=== PATIENT | male | born 1985 | race Caucasian/White ===

== ENCOUNTER 2020-01-28 05:07 | Emergency (ER) | payer BC ==
--- NOTE | 2020-01-28 05:45 | EDM.PDOC ---
ED HPI GENERAL MEDICAL PROBLEM - General Chief Complaint: Chest Pain Stated Complaint: CHEST PAIN Time Seen by Provider: 01/28/20 05:38 Source of Information: Reports: Patient History Limitations: Reports: No Limitations - History of Present Illness INITIAL COMMENTS - FREE TEXT/NARRATIVE: 34-year-old male who reports on Thursday night developed pain in his throat that was a pressure or constricting type pain that was present when he was swallowing. The symptoms seemed to continue through the day on and were really only present when he swallowed and then on evening and part of the day he began to have some pain in his chest that was present with swallowing and seem to come in waves lasting for 5-10 seconds and was a pressure type pain. At its worst during that night the pain got up to an 8/10. It did seem to get better when he got up and moved around and was better through the day on Thursday but last night the pain seemed to come back and be worse again with frequent episodes of this waves of chest discomfort and pain in his throat with swallowing. Currently he has no chest pain but he does have a 2/10 level of discomfort in his throat that he reports is a constriction type is comfort and is exacerbated when he swallows. No nausea or vomiting. No difficulty breathing. No arm pain. No back pain. No cough. No nasal congestion. No fevers or chills. There are no other associated signs or symptoms. There are no other modifying factors. 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) (Tums, with no relief) throat and upper mid chest Pain Score (Numeric/FACES): 2 - Related Data Allergies Allergy/AdvReac Type Severity Reaction Status Date / Time No Known Allergies Allergy Verified 01/28/20 05:24 Home Meds: Home Meds Levothyroxine 200 mcg PO ACBREAKFAST 01/28/20 [History] Omeprazole 40 mg PO ACBREAKFAST #30 cap.sr 01/28/20 [Rx] Past Medical History Endocrine/Metabolic History: Reports: Hypothyroidism (Had Graves' disease initially that was treated with radioactive iodine) - Past Surgical History Other Musculoskeletal Surgeries/Procedures:: Toenail surgeries Social & Family History - Family History Cardiac: Reports: CAD (Father with cardiac stents placed in late 30s and early 40s.) - Tobacco Use Smoking Status *Q: Former Smoker Used Tobacco, but Quit: Yes Month/Year Tobacco Last Used: 2013 - Alcohol Use Alcohol Use History: Yes Alcohol Use in Last Twelve Months: Yes Alcohol Use Frequency: Rarely - Recreational Drug Use Recreational Drug Use: No - Living Situation & Occupation Living situation: Reports: Occupation: Employed (He works as a heavy equipment diesel mechanic.) ED ROS GENERAL - Review of Systems Review Of Systems: See Below Constitutional: Reports: No Symptoms HEENT: Reports: Throat Pain Respiratory: Reports: No Symptoms Cardiovascular: Reports: Chest Pain Endocrine: Reports: No Symptoms GI/Abdominal: Reports: No Symptoms : Reports: No Symptoms Musculoskeletal: Reports: No Symptoms Skin: Reports: No Symptoms Neurological: Reports: No Symptoms Psychiatric: Reports: No Symptoms Hematologic/Lymphatic: Reports: No Symptoms Immunologic: Reports: No Symptoms ED EXAM, GENERAL - Physical Exam Exam: See Below Exam Limited By: No Limitations General Appearance: Alert, WD/WN, No Apparent Distress Eye Exam: Bilateral Eye: EOMI, Normal Inspection, PERRL Ears: Normal External Exam, Hearing Grossly Normal Ear Exam: Bilateral Ear: Auricle Normal Nose: Normal Inspection, Normal Mucosa, No Blood Throat/Mouth: Normal Inspection, Normal Oropharynx, Normal Voice, No Airway Compromise Head: Atraumatic, Normocephalic Neck: Normal Inspection, Supple, Non-Tender, Full Range of Motion Respiratory/Chest: No Respiratory Distress, Lungs Clear, Normal Breath Sounds, No Accessory Muscle Use, Chest Non-Tender Cardiovascular: Normal Peripheral Pulses, Regular Rate, Rhythm, No JVD, No Murmur Peripheral Pulses: 2+: Radial (L), Radial (R) GI/Abdominal: Normal Bowel Sounds, Soft, Non-Tender, No Organomegaly, No Mass Back Exam: Normal Inspection, Full Range of Motion Extremities: Normal Inspection, Normal Range of Motion, Non-Tender, No Pedal Edema, Normal Capillary Refill Neurological: Alert, Oriented, CN II-XII Intact, Normal Cognition, No Motor/ Sensory Deficits Psychiatric: Normal Affect, Normal Mood Skin Exam: Warm, Dry, Intact, Normal Color Lymphatic: No Adenopathy EKG INTERPRETATION EKG Date: 01/28/20 Time: 05:16 Rhythm: NSR Rate (Beats/Min): 70 [place]: Normal P-Wave: Present QRS: Normal ST-T: Normal QT: Normal Comparison: NA - No Prior EKG EKG Interpretation Comments: 6:17 AM: Repeat EKG showed normal sinus rhythm with a rate of 56. There was a normal axis and normal intervals and no change from previous EKG performed earlier today. 7:34 AM: Repeat EKG shows a normal sinus rhythm with a rate of 74. There is no change in this EKG from the previous EKGs performed today. This EKG was performed secondary to the patient having recurrent burning sensation in his throat. Course - Vital Signs Last Recorded V/S: Last Vital Signs Temp 36.1 C 01/28/20 05:07 Pulse 69 01/28/20 07:00 Resp 14 01/28/20 05:45 BP 131/94 H 01/28/20 07:00 Pulse Ox 98 01/28/20 05:45 - Orders/Labs/Meds Orders: Active Orders 24 hr Category Date Time Status EKG Documentation Completion [RC] ASDIRECTED Care 01/28/20 06:02 Active EKG Documentation Completion [RC] ASDIRECTED Care 01/28/20 06:41 Active EKG Documentation Completion [RC] ASDIRECTED Care 01/28/20 07:30 Active Ang Chest [CT] Stat Exams 01/28/20 08:11 Taken Chest 1V Frontal [CR] Stat Exams 01/28/20 06:01 Taken Nitroglycerin [Nitrostat] Med 01/28/20 06:03 Active 0.4 mg SL Q5M PRN Sodium Chloride 0.9% [Saline Flush] Med 01/28/20 06:01 Active 10 ml FLUSH ASDIRECTED PRN Peripheral IV Insertion Adult [OM.PC] Routine Oth 01/28/20 06:01 Ordered EKG 12 Lead [EK] Routine Ther 01/28/20 06:01 Ordered EKG 12 Lead [EK] Routine Ther 01/28/20 07:29 Ordered EKG 12 Lead [EK] Stat Ther 01/28/20 06:41 Ordered Medication Orders Nitroglycerin (Nitrostat) 0.4 mg SL Q5M PRN PRN Reason: Chest Pain Last Admin: 01/28/20 06:06 Dose: 0.4 mg Sodium Chloride (Saline Flush) 10 ml FLUSH ASDIRECTED PRN PRN Reason: Keep Vein Open Last Admin: 01/28/20 06:49 Dose: 10 ml Labs: Laboratory Tests 01/28/20 01/28/20 01/28/20 Range/Units 06:15 06:15 06:15 WBC 8.4 (4.5-12.0) X10-3/uL RBC 5.35 (4.30-5.75) x10(6)uL Hgb 16.2 (13.5-17.8) g/dL Hct 46.9 (30.0-51.3) % MCV 87.7 (80-96) fL MCH 30.3 (27.7-33.6) pg MCHC 34.6 (32.2-35.4) g/dL RDW 11.2 L (11.5-15.5) % Plt Count 97 L (125-369) X10(3)uL MPV 9.8 (7.4-10.4) fL Add Manual Diff Yes Neutrophils % (Manual) 51 (46-82) % Lymphocytes % (Manual) 43 H (13-37) % Monocytes % (Manual) 4 (4-12) % Eosinophils % (Manual) 2 (0-5) % Clumped Platelets Few D-Dimer, Quantitative 1.97 H (0.0-0.59) mg/LFEU Sodium 142 (135-145) mmol/L Potassium 3.8 (3.5-5.3) mmol/L Chloride 104 (100-110) mmol/L Carbon Dioxide 28 (21-32) mmol/L BUN 10 (7-18) mg/dL Creatinine 1.0 (0.70-1.30) mg/dL Est Cr Clr Drug Dosing 109.81 mL/min Estimated GFR (MDRD) > 60 (>60) BUN/Creatinine Ratio 10.0 (9-20) Glucose 104 (80-116) mg/dL Calcium 8.3 L (8.6-10.2) mg/dL Magnesium 1.8 (1.8-2.5) mg/dL Total Bilirubin 0.4 (0.1-1.3) mg/dL AST 27 H (5-25) IU/L ALT 69 H (12-36) U/L Alkaline Phosphatase 59 (56-112) IU/L Troponin I (4.0-60.3) pg/mL Total Protein 7.4 (6.0-8.0) g/dL Albumin 3.8 (3.5-5.2) g/dL Globulin 3.6 g/dL Albumin/Globulin Ratio 1.1 01/28/20 01/28/20 Range/Units 06:15 09:15 WBC (4.5-12.0) X10-3/uL RBC (4.30-5.75) x10(6)uL Hgb (13.5-17.8) g/dL Hct (30.0-51.3) % MCV (80-96) fL MCH (27.7-33.6) pg MCHC (32.2-35.4) g/dL RDW (11.5-15.5) % Plt Count (125-369) X10(3)uL MPV (7.4-10.4) fL Add Manual Diff Neutrophils % (Manual) (46-82) % Lymphocytes % (Manual) (13-37) % Monocytes % (Manual) (4-12) % Eosinophils % (Manual) (0-5) % Clumped Platelets D-Dimer, Quantitative (0.0-0.59) mg/LFEU Sodium (135-145) mmol/L Potassium (3.5-5.3) mmol/L Chloride (100-110) mmol/L Carbon Dioxide (21-32) mmol/L BUN (7-18) mg/dL Creatinine (0.70-1.30) mg/dL Est Cr Clr Drug Dosing mL/min Estimated GFR (MDRD) (>60) BUN/Creatinine Ratio (9-20) Glucose (80-116) mg/dL Calcium (8.6-10.2) mg/dL Magnesium (1.8-2.5) mg/dL Total Bilirubin (0.1-1.3) mg/dL AST (5-25) IU/L ALT (12-36) U/L Alkaline Phosphatase (56-112) IU/L Troponin I 6.0 5.7 (4.0-60.3) pg/mL Total Protein (6.0-8.0) g/dL Albumin (3.5-5.2) g/dL Globulin g/dL Albumin/Globulin Ratio Meds: Medications Generic Name Dose Route Start Last Admin Trade Name Jennie PRN Reason Stop Dose Admin Nitroglycerin 0.4 mg 01/28/20 06:03 01/28/20 06:06 Nitrostat SL 0.4 mg Q5M PRN Administration Chest Pain Sodium Chloride 10 ml 01/28/20 06:01 01/28/20 06:49 Saline Flush FLUSH 10 ml ASDIRECTED PRN Administration Keep Vein Open Discontinued Medications Generic Name Dose Route Start Last Admin Trade Name Jennie PRN Reason Stop Dose Admin Al Hydroxide/Mg Hydroxide Confirm 01/28/20 09:42 Mag-Al Susp Administered 01/28/20 09:43 Dose 30 ml .ROUTE .STK-MED ONE Aspirin 324 mg 01/28/20 06:03 01/28/20 06:00 Aspirin PO 01/28/20 06:04 324 mg ONETIME ONE Administration Al Hydroxide/Mg Hydroxide 15 0 ml 01/28/20 07:29 01/28/20 09:43 ml/ Lidocaine HCl 15 ml PO 01/28/20 07:30 30 ml ONETIME ONE Administration Sodium Chloride 500 mls @ 999 mls/hr 01/28/20 06:25 01/28/20 06:27 Normal Saline IV 01/28/20 06:55 999 mls/hr .BOLUS ONE Administration Iopamidol 85 ml 01/28/20 08:28 01/28/20 08:51 Isovue-370 (76%) IV 01/28/20 08:29 85 ml . DIRECTED ONE Administration Lidocaine HCl Confirm 01/28/20 09:42 Xylocaine 2% Viscous Administered 01/28/20 09:43 Dose 15 ml .ROUTE .STK-MED ONE - Radiology Interpretation Free Text/Narrative:: Portable chest x-ray showed no acute disease. - Re-Assessments/Exams Free Text/Narrative Re-Assessment/Exam: 01/28/20 06:20: Patient had been given aspirin 324 mg by mouth and then was given nitroglycerin 0.4 mg sublingual by the nursing staff for his/throat discomfort and approximately 2-3 minutes after the nitroglycerin the patient had a syncopal episode. His monitor showed bradycardia and a repeat blood pressure did show a lower blood pressure in the 110/70 range. He was only out for less than 30 seconds and came around likely with no seizure activity. In any chest discomfort at this time and the throat discomfort had resolved as well. A repeat EKG showed no changes from previous. I suspect that this represented a vasovagal syncopal episode related to the nitroglycerin administration and we will hold any further nitroglycerin at present. 01/28/20 07:35: Patient has remained hemodynamically stable since the episode of vasovagal syncope associated with the nitroglycerin administration. His labs thus far including an initial troponin were negative. A d-dimer still pending at this point. His chest x-ray showed no acute pathology. The patient did have recurrent burning in his throat and a repeat EKG was unchanged from previous. I will order the patient a GI cocktail and I am awaiting the results of the d- dimer. 01/28/20 09:45: CTA of his chest (ordered after the d-dimer was elevated) was negative. Patient's repeat troponin was negative. He has just received a GI cocktail and the plan will be at this point to discharge the patient. CO has been ruled out in this appears to be unlikely to be related to his heart. His blood pressure has been consistently elevated while in the emergency department. He will need follow-up with his primary doctor to recheck his blood pressure. In addition I will place the patient on omeprazole 40 mg daily as a trial of treatment of presumed GERD. Departure - Departure Time of Disposition: 09:55 Disposition: Home, Self-Care 01 Condition: Good Clinical Impression: Atypical chest pain, Elevated blood pressure reading GERD (gastroesophageal reflux disease) Qualifiers: Esophagitis presence: esophagitis presence not specified Qualified Code(s): K21.9 - Gastro-esophageal reflux disease without esophagitis - Discharge Information Prescriptions: Omeprazole 40 mg PO ACBREAKFAST #30 cap.sr Instructions: Nonspecific Chest Pain, Adult, [id number], Food Choices for Gastroesophageal Reflux Disease, Adult, [id number], Gastroesophageal Reflux Disease, Adult, [id number] Referrals: Darius Watson MD [Primary Care Provider] - Forms: ED Department Discharge Additional Instructions: Your EKGs were all reassuringly normal. Your heart enzyme tests were normal 2. You have not had a heart attack and this chest pain does not appear to be related to your heart. The CAT scan of your chest ruled out blood clots in your lung. The burning in your chest and your throat is to be related to acid reflux. I am placing you on a medication to treat for this (omeprazole 40 mg). You should start this medication today. Your blood pressure was elevated while you were in the emergency department and you will need to follow-up with your primary provider next week in regard to this and in regard to your chest pain/ burning. Back to the emergency department for worsening pain, trouble breathing , unrelenting vomiting or any other concerning sign or symptom. Sepsis Event Note - Evaluation Sepsis Screening Result: No Definite Risk - Focused Exam Vital Signs: Vital Signs Temp Pulse Resp BP BP Pulse Ox 01/28/20 07:00 69 131/94 H 01/28/20 06:15 57 L 109/55 L 01/28/20 06:11 55 L 119/70 01/28/20 06:08 74 141/96 H 01/28/20 06:06 146/103 H 01/28/20 05:45 79 14 146/113 H 98 01/28/20 05:30 74 16 144/106 H 99 01/28/20 05:07 36.1 C 78 12 161/104 H 100 Date Exam was Performed: 01/28/20 Time Exam was Performed: 09:49 - My Orders Last 24 Hours: My Active Orders 01/28/20 06:01 Chest 1V Frontal [CR] Stat Sodium Chloride 0.9% [Saline Flush] 10 ml FLUSH ASDIRECTED PRN Peripheral IV Insertion Adult [OM.PC] Routine EKG 12 Lead [EK] Routine 01/28/20 06:02 EKG Documentation Completion [RC] ASDIRECTED 01/28/20 06:03 Nitroglycerin [Nitrostat] 0.4 mg SL Q5M PRN 01/28/20 06:41 EKG Documentation Completion [RC] ASDIRECTED EKG 12 Lead [EK] Stat 01/28/20 07:29 EKG 12 Lead [EK] Routine 01/28/20 07:30 EKG Documentation Completion [RC] ASDIRECTED 01/28/20 08:11 Ang Chest [CT] Stat - Assessment/Plan Last 24 Hours: My Active Orders 01/28/20 06:01 Chest 1V Frontal [CR] Stat Sodium Chloride 0.9% [Saline Flush] 10 ml FLUSH ASDIRECTED PRN Peripheral IV Insertion Adult [OM.PC] Routine EKG 12 Lead [EK] Routine 01/28/20 06:02 EKG Documentation Completion [RC] ASDIRECTED 01/28/20 06:03 Nitroglycerin [Nitrostat] 0.4 mg SL Q5M PRN 01/28/20 06:41 EKG Documentation Completion [RC] ASDIRECTED EKG 12 Lead [EK] Stat 01/28/20 07:29 EKG 12 Lead [EK] Routine 01/28/20 07:30 EKG Documentation Completion [RC] ASDIRECTED 01/28/20 08:11 Ang Chest [CT] Stat
[2020-01-28] MEDS ORDERED: Sodium Chloride 0.9% 10 ML Syringe FLUSH PRN (06:01)
[2020-01-28] MEDS ORDERED: Aspirin 81 MG Tab.Chew PO ONE (06:03)
[2020-01-28] MEDS ORDERED: Nitroglycerin 0.4 MG Tab.SL SL PRN (06:03)
[2020-01-28] MEDS ORDERED: Sodium Chloride 0.9% 500 ML IV ONE (06:25)
[2020-01-28] MEDS ORDERED: Alum Hydroxide/Mag Hydroxide 15 ML, Lidocaine 2% 15 ML PO ONE ×2 (07:29)
[2020-01-28] MEDS ORDERED: Iopamidol 755 Mg/ML 100 ML Bottle IV ONE (08:28)
[2020-01-28] MEDS ORDERED: Aluminum Hydroxide/Magnesium Hydroxide Susp 30 ML Cup ONE (09:42)
[2020-01-28] MEDS ORDERED: Lidocaine 2% Viscous Solution 15 ML Cup ONE (09:42)
--- NOTE | 2020-01-30 11:02 | CR ---
INDICATION: Chest pain. CHEST, ONE VIEW: An AP upright portable view of the chest was obtained - no comparisons. Overlying EKG leads are noted. The heart did not appear enlarged. The aorta is slightly tortuous. An active infiltrate or effusion was not identified. IMPRESSION: No acute process - suggestion of mild ASD aorta. MTDD
== END 2020-01-28 10:02 | disposition home or self-care (01) ==
LOC: FB.ED 05:07
DX: K21.9 Gastro-esophageal reflux disease without esophagitis (principal); R03.0 Elevated blood-pressure reading, without diagnosis of hypertension; E03.9 Hypothyroidism, unspecified; Z79.899 Other long term (current) drug therapy; Z87.891 Personal history of nicotine dependence
CPT/HCPCS: 36415; 71045; 71275; 80053; 83735; 84484; 85025; 85379; 93005; 96360; 99285; A9270; J7040; Q9967